=== PATIENT | female | born 1955 | race Caucasian/White ===

== ENCOUNTER → 2022-05-15 09:33 | Outpatient (CLI) | payer MEDICARE, BC, SELFPAY ==
[2022-05-15 19:27] LABS: Add Manual Diff / Slide Review NO; Basophils Absolute Auto 0 /uL (0-100); Eosinophils Absolute Auto 100 /uL (0-450); Eosinophils Percent Auto 1.7 % (2-4); Hematocrit 41.3 % (36-46); Hemoglobin 14.5 g/dL (12.0-16.0); Lymphocytes Absolute Auto 1600 /uL (1100-4500); Lymphocytes Percent Auto 41.8 % (25-40); Mean Corpuscular Hemoglobin 32.7 PG (26-34); Mean Corpuscular Volume 93.5 fL (80-100); Monocytes Absolute Auto 300 /uL (0-900); Monocytes Percent Auto 8.3 % (3-14); Neutrophils Absolute Auto 1800 /uL (1500-7000); Neutrophils Percent Auto 47.2 % (50-75); Platelet Count 172 X10^3/uL (150-400); Red Blood Cell Count 4.42 X10^6/uL (4.0-5.2); Red Cell Distribution Width 12.2 % (11.6-14.8); White Blood Cell Count 3.8 X10^3/uL (4.5-11.0)
[2022-05-15 19:33] LABS: Alanine Aminotransferase 17 IU/L (<35); Albumin 4.2 g/dL (3.5-5.0); Albumin Globulin Ratio 1.6 (1.0-2.8); Alkaline Phosphatase 88 U/L (38-126); Aspartate Aminotransferase 25 IU/L (14-36); BUN Creatinine Ratio 18.9 (6-22); Bilirubin Total 0.7 mg/dL (0.2-1.3); Blood Urea Nitrogen 14 mg/dL (7-17); Calcium 9.6 mg/dL (8.4-10.2); Carbon Dioxide 30 mmol/L (22-32); Chloride 104 mmol/L (98-107); Cholesterol 262 mg/dL (140-199); Estimated Glomerular Filt Rate > 60 mL/min (>60); Globulin 2.7 g/dL (1.7-4.1); Glucose 86 mg/dL (80-110); HDL Cholesterol 77 mg/dL (40-60); HEMOLYSIS < 15 (0-50); LDL Cholesterol Calculated 174 mg/dL (<100); Potassium 4.3 mmol/L (3.4-5.1); Sodium 139 mmol/L (137-145); Total Protein 6.9 g/dL (6.3-8.2); Triglycerides 57 mg/dL (35-150)
[2022-05-15 19:47] LABS: Free T3, Triiodothyronine Free 3.73 pg/mL (2.77-5.27)
[2022-05-15 20:01] LABS: TSH w/ Reflex to FT4 1.53 uIU/mL (0.47-4.68)
[2022-05-15 20:20] LABS: Vitamin B12 389 pg/mL (239-931)
== END ==
PROVIDERS: PCP Physician Assistant Medical; Visit Provider Physician Assistant Medical
DX: E78.5 Hyperlipidemia, unspecified (principal); R00.2 Palpitations; F32.A Depression, unspecified; F41.9 Anxiety disorder, unspecified; M81.0 Age-related osteoporosis without current pathological fracture; M89.9 Disorder of bone, unspecified; M94.9 Disorder of cartilage, unspecified; R53.83 Other fatigue
CPT/HCPCS: 80053; 80061; 82607; 84443; 84481; 85025

== ENCOUNTER → 2022-05-16 09:44 | Outpatient (CLI) | payer MEDICARE, BC, SELFPAY ==
[2022-05-20 10:52] LABS: Fecal Immunochemical Test Negative (Negative)
== END ==
PROVIDERS: PCP Physician Assistant Medical; Visit Provider Physician Assistant Medical
DX: Z12.11 Encounter for screening for malignant neoplasm of colon (principal)
CPT/HCPCS: 82274

== ENCOUNTER → 2023-03-25 09:04 | Outpatient (CLI) | payer MEDICARE, BC, SELFPAY ==
[2023-03-25 19:06] LABS: Alanine Aminotransferase 14 IU/L (<35); Albumin 3.7 g/dL (3.5-5.0); Albumin Globulin Ratio 1.4 (1.0-2.8); Alkaline Phosphatase 91 U/L (38-126); Aspartate Aminotransferase 20 IU/L (14-36); BUN Creatinine Ratio 21.7 (6-22); Bilirubin Total 0.6 mg/dL (0.2-1.3); Blood Urea Nitrogen 13 mg/dL (7-17); Calcium 9.6 mg/dL (8.4-10.2); Carbon Dioxide 30 mmol/L (22-32); Chloride 103 mmol/L (98-107); Cholesterol 217 mg/dL (140-199); Estimated Glomerular Filt Rate > 60 mL/min (>60); Globulin 2.7 g/dL (1.7-4.1); Glucose 85 mg/dL (80-110); HDL Cholesterol 58 mg/dL (40-60); HEMOLYSIS < 15 (0-50); LDL Cholesterol Calculated 144 mg/dL (<100); Potassium 3.9 mmol/L (3.4-5.1); Sodium 139 mmol/L (137-145); Total Protein 6.4 g/dL (6.3-8.2); Triglycerides 77 mg/dL (35-150)
[2023-03-25 19:13] LABS: Add Manual Diff / Slide Review NO; Basophils Absolute Auto 0 /uL (0-100); Basophils Percent Auto 0.5 % (0-2); Eosinophils Absolute Auto 100 /uL (0-450); Eosinophils Percent Auto 1.7 % (2-4); Hematocrit 37.4 % (36-46); Hemoglobin 12.9 g/dL (12.0-16.0); Lymphocytes Absolute Auto 2600 /uL (1100-4500); Lymphocytes Percent Auto 40.3 % (25-40); Mean Corpuscular HGB Conc 34.5 % (30-36); Mean Corpuscular Hemoglobin 31.7 PG (26-34); Mean Corpuscular Volume 92.1 fL (80-100); Monocytes Absolute Auto 500 /uL (0-900); Monocytes Percent Auto 7.3 % (3-14); Neutrophils Absolute Auto 3200 /uL (1500-7000); Neutrophils Percent Auto 50.2 % (50-75); Platelet Count 213 X10^3/uL (150-400); Red Blood Cell Count 4.06 X10^6/uL (4.0-5.2); Red Cell Distribution Width 12.1 % (11.6-14.8); White Blood Cell Count 6.3 X10^3/uL (4.5-11.0)
[2023-03-25 19:34] LABS: TSH w/ Reflex to FT4 1.27 uIU/mL (0.47-4.68)
== END ==
PROVIDERS: PCP Physician Assistant Medical; Visit Provider Physician Assistant
DX: R30.0 Dysuria (principal); R00.2 Palpitations; R79.89 Other specified abnormal findings of blood chemistry; F41.9 Anxiety disorder, unspecified; R53.83 Other fatigue; Z13.6 Encounter for screening for cardiovascular disorders; Z79.899 Other long term (current) drug therapy; Z87.898 Personal history of other specified conditions
CPT/HCPCS: 80053; 80061; 84443; 85025

== ENCOUNTER → 2023-04-15 08:33 | Outpatient (CLI) | payer MEDICARE, BC, SELFPAY ==
--- NOTE | 2023-04-15 08:34 | DI.MG.S_ITS ---
UNILATERAL RIGHT DIGITAL DIAGNOSTIC MAMMOGRAM 3D/2D POST LUMPECTOMY POST MASTECTOMY: 04/15/2023 CLINICAL: Palpable right axilla lump. Comparison is made to exams dated: 04/26/2021 mammogram, 11/21/2015 mammogram, and 12/07/2013 mammogram - Outside facility. The right breast is heterogeneously dense, which may obscure small masses (category c / 51-75% glandular tissue). There are no post operative changes in the right breast. There is a 1.8 cm asymmetry in the right breast posterior depth superior region seen on the mediolateral oblique view only. This correlates as palpated. No other significant masses or calcifications are seen in the breast. IMPRESSION: INCOMPLETE: NEEDS ADDITIONAL IMAGING EVALUATION The 1.8 cm asymmetry in the right breast is indeterminate. A targeted ultrasound of the right breast is recommended and will be performed immediately following this exam. This exam was interpreted at Station ID: [id number]. NOTE: For mammograms, a report in lay terms will be sent to the patient. Approximately 15% of breast malignancies will not be visualized mammographically. In the management of a palpable breast mass, a negative mammogram must not discourage biopsy of a clinically suspicious lesion. Electronically Signed By: Mariajose cespedes/:04/15/2023 10:13:14 ACR BI-RADS Category 0: Incomplete 3340F
--- NOTE | 2023-04-15 08:34 | DI.US.S_ITS ---
ULTRASOUND OF RIGHT BREAST: 04/15/2023 CLINICAL: Palpable right axilla lump. Comparison is made to exams dated: 04/15/2023 mammogram - [facility], 04/26/2021 mammogram, 04/26/2021 mammogram, 11/21/2015 mammogram, 12/07/2013 mammogram, and 11/25/2012 mammogram - Outside facility. Color flow ultrasound of the right breast was performed on the areas of interest. Wheeler scale images of the real-time examination were reviewed. There is a 2 cm x 1.7 cm x 1.3 cm irregular mass in the right axillary tail. This irregular mass is hypoechoic. This correlates as palpated and with mammography findings. Color flow imaging demonstrates that there is vascularity present. IMPRESSION: SUSPICIOUS OF MALIGNANCY The 2 cm x 1.7 cm x 1.3 cm irregular mass is at a high suspicion for malignancy. An ultrasound guided biopsy is recommended. This exam was interpreted at Station ID: [id number]. SUMMARY: This was discussed with the patient by the radiologist Dr. Serrano at the time of the exam. Electronically Signed By: Mariajose cespedes/valentin:04/15/2023 10:35:53 letter sent: Biopsy Required Ultrasound BI-RADS: 4c High suspicion of malignancy
== END ==
PROVIDERS: PCP Physician Assistant; Referring Provider Physician Assistant; Visit Provider Physician Assistant
DX: N64.4 Mastodynia (principal); Z90.12 Acquired absence of left breast and nipple; Z98.890 Other specified postprocedural states; R22.31 Localized swelling, mass and lump, right upper limb; N64.89 Other specified disorders of breast; N63.31 Unspecified lump in axillary tail of the right breast
CPT/HCPCS: 76882; 77065; G0279

== ENCOUNTER → 2023-04-25 12:45 | Outpatient (CLI) | payer MEDICARE, BC, SELFPAY ==
--- NOTE | 2023-04-25 | DI.US.S_ITS ---
ULTRASOUND GUIDED BIOPSY RIGHT BREAST WITH MARKING DEVICE INSERTED AND POST DIGITAL MAMMOGRAPHIC IMAGIN04/25/2023 CLINICAL: Right axilla mass biopsy. PATIENT CONSENT: Risks (minor bleeding, infection, vasovagal reaction and repeat procedure), benefits and alternatives were explained to the patient and written informed consent was obtained. Correlation is made to exams dated: 04/25/2023 mammogram, 04/15/2023 ultrasound, 04/15/2023 mammogram - [facility], 04/26/2021 mammogram, and 04/26/2021 mammogram - Outside facility. An ultrasound guided biopsy using real-time ultrasound was performed for the palpable 2 cm x 1.7 cm x 1.3 cm mass located in the right axillary tail. This was described on the previous ultrasound report. The skin was prepped in the usual manner. Local anesthetic was administered to the access site. A skin sujata was made in the breast. The abnormality was approached from the lateral aspect. An 18 gauge biopsy needle was placed adjacent to the abnormality under ultrasound guidance. Once the needle was documented to be in the correct location, five cores were obtained using temno. A vision clip was inserted into the biopsy cavity. A skin adhesive and a sterile dressing were applied to the access site. Post procedure digital mammographic imaging demonstrates the location device at the targeted area. The specimens were sent to the laboratory for pathological analysis. IMPRESSION: ULTRASOUND GUIDED BIOPSY BENIGN Ultrasound guided biopsy of the 2 cm x 1.7 cm x 1.3 cm mass in the right axillary tail was successful with no apparent post procedure complications. Pathology indicates multifocal granulomatous inflamation, chronic and active inflamation and fibrosis. No evidence of malignancy. Although special stains were negative, the diffential diagnosis still includes multiple infedtious etiologies. Correlation with serologies or surgical excision should be considered for further characterization. This exam was interpreted at Station ID: [id number]. Carson Zhu M.D. [facility] [place]/:05/05/2023 18:19:28
--- NOTE | 2023-04-25 | PATH_ITS ---
[facility] Accession Number: [id number] No. of containers..01 Tissue . 01 Material submitted: . axilla - RIGHT AXILLA MASS . 01 Diagnosis: A. Right Axillary Mass, Biopsy: Fibrofatty and fibroconnective tissue with multifocal necrotizing granulomatous inflammation, associated chronic and focally active inflammation, and fibrosis. Negative for mycobacteria, bacteria, fungal or spirochete organisms on special stains (see microscopic description). No evidence of malignancy. See comment. . COMMENT: Despite the negative findings on the special stains, the differential diagnosis still includes infections (mycobacterial, leprosy, fungal, cat scratch disease, amongst others); necrotizing sarcoid granulomatosis and drug-induced reactions are considered but less favored. Clinical and serologic correlation is necessary. MRV 05/02/2023 1835 Local . 01 Comment: Dr. Rere Grewal reviewed this case and concurs with the interpretation/diagnosis. . 01 Electronically signed: . Anju Shepaprd MD, Pathologist NPI- [id number] . 01 Gross description: . The specimen is received in formalin labeled with the patient's name, , and right axilla mass, and consists of seven yellow-mohan needle core biopsies ranging in length from 0.2 cm to 0.7 cm and measuring 0.1 cm in diameter. Inked green and submitted entirely in cassette A1. . The specimen is removed on 04/25/2023 at 1413, time in formalin not provided, cold ischemic time cannot be calculated. Total fixation time is approximately 48 hours. ([id number]) /FRR 04/26/2023 1904 Local . 01 Microscopic: . A panel of immunostains and special stains are performed on block A1 in order to evaluate the areas of inflammation for neoplasia and organisms. Appropriate external controls present. The areas of interest are: . SYEDA: Negative (no carcinoma). CD68: Positive (histiocytic inflammation). . AFB (Verona): Negative (Leprosy and Nocardia). AFB (Ziel Satya): Negative (Acid Fast Bacteria Mycobacterium). GMS Fungus: Negative. Duyen: Negative (Spirochetes). GRAM: Negative (bacteria). . No refractile or polarizable material seen. . * This test was developed and its performance characteristics determined by [employer]. It has not been cleared or approved by the U.S. Food and Drug Administration. The FDA has determined that such clearance or approval is not necessary. This test is used for clinical purposes. It should not be regarded as investigational or for research. . 01 Pathologist provided ICD-10: L92.9 . 01 CPT . 339845, F27282, R24839, 115542, 603341, 262532, 719159, 662511 Performed at: 01 [facility] [address] [place] [address], [place], [place] [id number] MD Michele Bullock MD Phone: [phone]
--- NOTE | 2023-04-25 | DI.MG.S_ITS ---
UNILATERAL RIGHT DIGITAL DIAGNOSTIC MAMMOGRAM 3D/2D: 04/25/2023 CLINICAL: Post right breast ultrasound biopsy clip placement imaging. Comparison is made to exams dated: 04/15/2023 mammogram - [facility], 04/26/2021 mammogram, 04/26/2021 mammogram - Outside facility, and 04/15/2023 ultrasound - [facility]. The right breast is heterogeneously dense, which may obscure small masses (category c / 51-75% glandular tissue). There is a marker clip in the appropriate position in the right axilla seen on the mediolateral oblique view only. This marker clip placement is at the biopsy site. IMPRESSION: POST PROCEDURE MAMMOGRAM FOR MARKER PLACEMENT There was a successful marker clip placement in the right axilla. This exam was interpreted at Station ID: [id number]. Electronically Signed By: Carson Gilmore M.D. slc/:04/25/2023 15:20:21 ACR BI-RADS Category Post-procedure mammogram for marker placement
== END ==
PROVIDERS: PCP Physician Assistant; Referring Provider Physician Assistant; Visit Provider Physician Assistant
DX: N61.0 Mastitis without abscess (principal); N60.31 Fibrosclerosis of right breast
CPT/HCPCS: 38505; 76942; 77065

== ENCOUNTER → 2023-06-12 14:06 | Outpatient (CLI) | payer MEDICARE, BC, SELFPAY ==
--- NOTE | 2023-06-12 14:10 | DI.RAD.S_ITS ---
PROCEDURE: XR CHEST 2V INDICATIONS: LOCALIZED SWELLING TECHNIQUE: 2 views of the chest were acquired. COMPARISON: None. FINDINGS: Surgical changes and devices: None. Lungs and pleura: Biapical scars. Lungs are otherwise clear. No pleural effusions or pneumothorax. Mediastinum: Mediastinal contours are normal. Heart size is normal. Bones and chest wall: No suspicious bony abnormalities. Soft tissues appear unremarkable. IMPRESSION: No acute cardiopulmonary abnormality is seen. Biapical scars. Dictated by: Jess Vila M.D. on 06/12/2023 at 16:18 Approved by: Jess Vila M.D. on 06/12/2023 at 16:18
== END ==
PROVIDERS: PCP Physician Assistant; Referring Provider Family Medicine; Visit Provider Family Medicine
DX: R22.2 Localized swelling, mass and lump, trunk (principal)
CPT/HCPCS: 71046

== ENCOUNTER → 2024-01-20 12:48 | Outpatient (CLI) | payer MEDICARE, BC, SELFPAY ==
--- NOTE | 2024-01-20 12:50 | DI.ECHO.S_ITS ---
[facility] : : [address] : : [place] : : [id number] : : Phone: [phone] Echocardiogram Report + + :Name: TAI WEBER Study Date: 01/20/2024 Height: 66 in : :[facility] ReadingLocation: Weight: 126 lb : : Gender: Female BSA: 1.6 m2 : :: 1955 Age: 68 yrs BP: 133/63 mmHg: :Reason For Study: HYPERLIPIDEMIA : :Ordering Physician: CATIE, : :APRYL Salazar Performed By: Anya Velarde : :Referring: APRYL HADDAD : + + Interpretation Summary The ejection fraction is estimated to be 60-65%. Diastolic parameters suggest probable normal left ventricular diastolic function and normal filling pressures. The right ventricle is normal in size and function. The right ventricular systolic pressure is estimated to be at least 29 mmHg based on an estimated right atrial pressure of 8 mm Hg. No signficant valvular abnormality. Procedure: A two-dimensional transthoracic echocardiogram with color flow and Doppler was performed. The study quality was technically adequate. There is no prior echocardiogram noted for this patient. The patient was in sinus rhythm with heart rates between 59-70 bpm during the exam. Left Ventricle: The left ventricle is normal in size and wall thickness. The ejection fraction is estimated to be 60-65%. Left ventricular wall motion is normal. Diastolic parameters suggest probable normal left ventricular diastolic function and normal filling pressures. Right Ventricle: The right ventricle is normal in size and function. Atria: The left atrial size is normal. Right atrial size is normal. There is no Doppler evidence for an interatrial shunt. Mitral Valve: The mitral valve is normal in structure and function. There is no mitral regurgitation noted. Aortic Valve: The aortic valve is trileaflet. The aortic valve opens well. There is no aortic valve stenosis. No aortic regurgitation is present. Tricuspid Valve: The tricuspid valve is normal in structure and function. There is mild tricuspid regurgitation. The right ventricular systolic pressure is estimated to be at least 29 mmHg based on an estimated right atrial pressure of 8 mm Hg. Pulmonic Valve: The pulmonic valve leaflets are thin and pliable; valve motion is normal. There is mild pulmonic regurgitation. Great Vessels: The aortic root is normal size. The dimensions of the ascending aorta are normal. The IVC is dilated (diameter is greater than 2.1 cm) yet it collapses greater than 50% with a sniff. This suggests a right atrial pressure of 8 mm Hg. Pericardium/ Pleura There is no pericardial effusion. There is no pleural effusion. MMode/2D Measurements & Calculations LVIDd: 4.3 cm LVOT diam: 2.1 cm LVIDs: 2.7 cm Ao root diam: 2.7 cm FS: 36.0 % asc Aorta Diam: 2.5 cm IVSd: 0.49 cm Ao Arch Diam (Prox Trans): 2.5 cm LVPWd: 0.63 cm LV jonas. diameter/BSA (cm/m^2): 2.6 LV sys. diameter/BSA (cm/m^2): 1.7 LA A2 area: 12.4 cm2 RA long axis: 4.5 cm LA A4 area: 11.3 cm2 RA area: 11.7 cm2 LA length (vol): 3.7 cm RA vol: 25.7 ml LA vol: 31.7 ml RA : 15.6 ml/m2 LA vol index: 19.3 ml/m2 IVC diam: 2.2 cm RVD1 (basal): 3.2 cm RVD2 (mid): 2.4 cm TAPSE: 2.0 cm Doppler Measurements & Calculations Ao V2 max: 138.0 cm/sec LVOT Max Gianluca: 138.1 cm/sec Ao V2 mean: 91.5 cm/sec LV V1 max P.6 mmHg Ao max P.6 mmHg LV V1 VTI: 25.5 cm Ao mean P.7 mmHg JACINTO(I,D): 3.0 cm2 Ao V2 VTI: 28.2 cm JACINTO(V,D): 3.3 cm2 sev ratio: 0.91 JACINTO indexed to BSA (cm^2/m^2): 1.8 MV E max gianluca: 73.0 cm/sec TR max gianluca: 227.6 cm/sec MV A max gianluca: 77.1 cm/sec TR max P.7 mmHg MV E/A: 0.95 PA V2 max: 97.6 cm/sec Med Peak E' Gianluca: 9.0 cm/sec PA V2 mean: 70.6 cm/sec E/E' med: 8.1 PA mean P.2 mmHg Lat Peak E' Gianluca: 7.3 cm/sec PA pr(Accel): 22.5 mmHg E/E' lat: 10.0 E/e' average: 9.1 MV dec time: 0.24 sec [facility] 84.3 ml Reading Physician:CHARIS
== END ==
PROVIDERS: PCP Family Medicine; Referring Provider Family Medicine; Visit Provider Family Medicine
DX: E78.5 Hyperlipidemia, unspecified (principal); E78.41 Elevated Lipoprotein(a); Z85.3 Personal history of malignant neoplasm of breast; I07.1 Rheumatic tricuspid insufficiency
CPT/HCPCS: 93306